=== PATIENT | male | born 1985 | race Caucasian/White ===

== ENCOUNTER 2016-10-03 11:17 | Emergency (ER) | payer SELFPAY ==
[2016-10-03 11:22] VITALS: O2SAT 96
--- NOTE | 2016-10-03 11:42 | CPEKG ---
Heart Rate: 95 RR Interval: 632 P-R Interval: 156 QRSD Interval: 88 QT Interval: 340 QTC Interval: 428 P [place]: 12 QRS [place]: 24 T Wave [place]: 3 EKG Severity - NORMAL ECG - EKG Impression: SINUS RHYTHM Electronically Signed By: Paul Lynch 03-Oct-2016 12:09:12
--- NOTE | 2016-10-03 11:57 | EDPHY ---
H & P Stated Complaint: near syncope HPI/ROS: CHIEF COMPLAINT: Dizziness, high blood pressure, headache HISTORY OF PRESENT ILLNESS: patient was working early this morning when he felt a sudden onset of dizziness. associated with mild headache and generally not feeling well. No sudden onset of headache. No neck pain or stiffness. No fever or chills. No cough or abdominal complaints. No urinary complaints. He does have dizziness that lasted for several minutes and resolved. It came back 1 other time. At this time is no dizziness but does have a very mild frontal headache. No confusion, nausea or vomiting. No spinning sensation. No other associated complaints or modifying factors. He does not have a primary care physician. He says he is overweight but has no known medical diagnoses. REVIEW OF SYSTEMS: Ten systems reviewed and are negative unless otherwise noted in the HPI EXAMINATION General Appearance: Alert, no distress, obese Head: normocephalic, atraumatic Eyes: Pupils equal and round, no conjunctival pallor or injection , no subconjunctival hemorrhage or hyphema ENT, Mouth: Mucous membranes moist Neck: Normal inspection, supple, non-tender Respiratory: Lungs are clear to auscultation Cardiovascular: Regular rate and rhythm Gastrointestinal: Abdomen is soft and nontender. No rigidity or tympany. Neurological: A&O X4, cranial nerves 2-12 grossly intact. strength is 5/5 in all limbs. Sensory intact bilaterally. No pronator drift. non-focal With negative stroke scale. Skin: Warm and dry, no rash Extremities: Nontender, no pedal edema Psychiatric: Mood and affect normal DIFFERENTIAL DIAGNOSES: Including but not limited to Hypertensive urgency, hypertensive emergency, intracranial bleed, intracranial mass, vertigo MDM: dizziness with high blood pressure without any trauma or severe headache. He is 30 years old with no known diagnosis. Blood pressure was 160/110 at this facility. He has no chest pain of any kind. Laboratory studies are pending at this time, as well as CT scan. EKG was unremarkable. 12:20 p.m. radiologist contacted me to inform you that there are no acute findings on the CT scan of the head. No abnormal findings of any kind. He remains hemodynamically stable with mild hypertension. 1:25 p.m. I have re-evaluated this patient. They remain hemodynamically stable and in no distress. No further complaints at this time.Blood pressure has improved to 140/ 109. He has no headache or dizziness. No chest pain. Labs are within normal limits without any evidence of end-organ damage. We discussed discharge home with outpatient follow-up with primary care physician, he is comfortable with this. Return to the ER for any headache, chest pain, dizziness or syncope. EKG: Interpreted by Dr. Lynch SUPERVISION: This patient was independently evaluated without the aide of supervising physician. Source: Patient Exam Limitations: No limitations - Personal History Current Tetanus/Diphtheria Vaccine: Yes Current Tetanus Diphtheria and Acellular Pertussis (TDAP): Yes - Medical/Surgical History Hx Asthma: No Hx Chronic Respiratory Disease: No Hx Diabetes: No Hx Cardiac Disease: No Hx Renal Disease: No Hx Cirrhosis: No Hx Alcoholism: No Hx HIV/AIDS: No Hx Splenectomy or Spleen Trauma: No Other PMH: IBS - Social History Smoking Status: Former smoker Constitutional: Initial Vital Signs Temperature (C) 98.6 F 10/03/16 11:19 Heart Rate 102 H 10/03/16 11:19 Respiratory Rate 16 10/03/16 11:19 Blood Pressure 160/110 H 10/03/16 11:19 O2 Sat (%) 96 10/03/16 11:19 O2 Delivery Mode Room Air Allergies/Adverse Reactions: amoxicillin Allergy (Verified 10/03/16 11:22) Penicillins Allergy (Verified 10/03/16 11:22) Medical Decision Making - Data Points Laboratory Results: Laboratory Results 10/03/16 11:55 10/03/16 11:55 10/03/16 11:55 WBC 10.39 H 10^3/uL (3.80-9.50) RBC 5.81 10^6/uL (4.40-6.38) Hgb 15.8 g/dL (13.7-17.5) Hct 47.5 % (40.0-51.0) MCV 81.8 fL (81.5-99.8) MCH 27.2 L pg (27.9-34.1) MCHC 33.3 g/dL (32.4-36.7) RDW 13.9 % (11.5-15.2) Plt Count 271 10^3/uL (150-400) MPV 10.5 fL (8.7-11.7) Neut % (Auto) 62.5 % (39.3-74.2) Lymph % (Auto) 29.9 % (15.0-45.0) [place] % (Auto) 5.3 % (4.5-13.0) Eos % (Auto) 1.3 % (0.6-7.6) Baso % (Auto) 0.4 % (0.3-1.7) Nucleat RBC Rel Count 0.0 % (0.0-0.2) Absolute Neuts (auto) 6.49 10^3/uL (1.70-6.50) Absolute Lymphs (auto) 3.11 H 10^3/uL (1.00-3.00) Absolute Monos (auto) 0.55 10^3/uL (0.30-0.80) Absolute Eos (auto) 0.14 10^3/uL (0.03-0.40) Absolute Basos (auto) 0.04 10^3/uL (0.02-0.10) Absolute Nucleated RBC 0.00 10^3/uL (0-0.01) Immature Gran % 0.6 % (0.0-1.1) Immature Gran # 0.06 10^3/uL (0.00-0.10) Sodium 139 mEq/L (134-144) Potassium 4.7 mEq/L (3.5-5.2) Chloride 102 mEq/L (97-110) Carbon Dioxide 28 mEq/l (22-31) Anion Gap 9 mEq/L (8-16) BUN 9 mg/dL (7-23) Creatinine 0.9 mg/dL (0.7-1.3) Estimated GFR > 60 Glucose 102 H mg/dL (70-100) Calcium 9.4 mg/dL (8.5-10.4) Total Bilirubin 0.6 mg/dL (0.1-1.4) Conjugated Bilirubin 0.4 mg/dL (0.0-0.5) Unconjugated Bilirubin 0.2 mg/dL (0.0-1.1) AST 31 IU/L (17-59) ALT 52 IU/L (21-72) Alkaline Phosphatase 62 IU/L (38-126) Troponin I < 0.012 ng/mL (0-0.034) Total Protein 7.2 g/dL (6.3-8.2) Albumin 4.3 g/dL (3.5-5.0) Departure - Departure Clinical Impression: Elevated blood pressure reading, Dizziness Cephalgia Qualifiers: Qualifier Code: (R51) Headache Obesity Qualifiers: Qualifier Code: (E66.9) Obesity, unspecified Condition: Good Instructions: Hypertension (ED), DASH Eating Plan (ED), Dizziness (ED) Additional Instructions: Return to the ER for any chest pain, return of dizziness or headache, syncope, nausea or confusion Referrals: NONE *PRIMARY CARE P,. [Primary Care Provider] - As per Instructions Nelson Quintero MD [Medical Doctor] - As per Instructions
[2016-10-03 12:07] LABS: % IMMATURE GRANULYOCYTES 0.6 % (0.0-1.1); ABSOLUTE IMMATURE GRANULOCYTES 0.06 10^3/uL (0.00-0.10); ADD DIFF? NO; ADD MORPH? NO; ADD SCAN? NO; ATYPICAL LYMPHOCYTE FLAG 10 (0-99); FRAGMENT RBC FLAG 0 (0-99); HEMATOCRIT 47.5 % (40.0-51.0); HEMOGLOBIN 15.8 g/dL (13.7-17.5); LEFT SHIFT FLG 0 (0-99); LIPEMIA HEMOLYSIS FLAG 80 (0-99); MEAN CELL HEMOGLOBIN 27.2 pg (27.9-34.1); MEAN CELL HEMOGLOBIN CONCENTR. 33.3 g/dL (32.4-36.7); MEAN CELL VOLUME 81.8 fL (81.5-99.8); MEAN PLATELET VOLUME 10.5 fL (8.7-11.7); PLATELET CLUMPS FLAG 0 (0-99); PLATELET COUNT 271 10^3/uL (150-400); RED BLOOD CELL COUNT 5.81 10^6/uL (4.40-6.38); RED CELL DISTRIBUTION WIDTH 13.9 % (11.5-15.2)
--- NOTE | 2016-10-03 12:23 | CT ---
CT Brain (Without Contrast) at 1206 hours History: Hypertension, dizziness. Comparison: None. Technique: Axial computed tomographic images of the brain without contrast. Dose reduction technique s were utilized. Findings: Ventricles, cisterns, and sulci are normal without atrophy, hydrocephalus, midline shift/h erniation, or epidural/subdural hematomas. No acute intraparenchymal hemorrhage, definite infarct, or mass effect. Bone windows demonstrate no displaced fractures. Paranasal sinuses and mastoid air cell s are clear. Impression: 1. Normal CT brain without contrast. 2. Consider MRI of the brain without and with contrast enhancement, if there is continued clinical co ncern. Findings and recommendations discussed with Emergency Department physician, Eduardo Seaman PA-C at 122 0 hour, today. Final report concurs with initial preliminary interpretation.
[2016-10-03 12:32] LABS: ALANINE AMINOTRANSFERASE 52 IU/L (21-72); ALBUMIN 4.3 g/dL (3.5-5.0); ALKALINE PHOSPHATASE 62 IU/L (38-126); ANION GAP 9 mEq/L (8-16); ASPARTATE AMINOTRANSFERASE 31 IU/L (17-59); BILIRUBIN,TOTAL 0.6 mg/dL (0.1-1.4); BILIRUBIN-CONJUGATED 0.4 mg/dL (0.0-0.5); BILIRUBIN-UNCONJUGATED 0.2 mg/dL (0.0-1.1); CALCIUM 9.4 mg/dL (8.5-10.4); CARBON DIOXIDE 28 mEq/l (22-31); CHLORIDE 102 mEq/L (97-110); CREATININE 0.9 mg/dL (0.7-1.3); GLOMERULAR FILTRATION RATE > 60; GLUCOSE 102 mg/dL (70-100); POTASSIUM 4.7 mEq/L (3.5-5.2); SODIUM 139 mEq/L (134-144); TOTAL PROTEIN 7.2 g/dL (6.3-8.2)
[2016-10-03 12:43] LABS: TROPONIN I < 0.012 ng/mL (0-0.034)
[2016-10-03 13:44] VITALS: BP 142/109; PULSE 75; RESP 18; TEMP 97.5
== END 2016-10-03 13:39 | disposition home or self-care (01) ==
DX: R42 Dizziness and giddiness (principal); R51 Headache; E66.9 Obesity, unspecified; R03.0 Elevated blood-pressure reading, without diagnosis of hypertension; Z87.891 Personal history of nicotine dependence

== ENCOUNTER 2016-10-05 19:38 | Emergency (ER) | payer SELFPAY ==
--- NOTE | 2016-10-05 20:28 | EDPHY ---
H & P Stated Complaint: HIGH BLOOD PRESSURE WITH HX OF SAME Time Seen by Provider: 10/05/16 20:28 - Personal History Current Tetanus/Diphtheria Vaccine: Yes Current Tetanus Diphtheria and Acellular Pertussis (TDAP): Yes - Medical/Surgical History Hx Asthma: No Hx Chronic Respiratory Disease: No Hx Diabetes: No Hx Cardiac Disease: No Hx Renal Disease: No Hx Cirrhosis: No Hx Alcoholism: No Hx HIV/AIDS: No Hx Splenectomy or Spleen Trauma: No Other PMH: IBS, APPY, WRIST FX - Social History Smoking Status: Former smoker Constitutional: Initial Vital Signs Temperature (C) 37.2 C 10/05/16 19:51 Heart Rate 100 10/05/16 19:51 Respiratory Rate 18 10/05/16 19:51 Blood Pressure 145/124 H 10/05/16 19:51 O2 Sat (%) 94 10/05/16 19:51 O2 Delivery Mode Room Air Allergies/Adverse Reactions: amoxicillin Allergy (Verified 10/05/16 19:53) Penicillins Allergy (Verified 10/05/16 19:53) Home Medications: Medication Instructions Recorded Forskolin 10/05/16 Lisinopril/Hctz 20/12.5MG 1 ea PO DAILY #30 tab 10/05/16 [Zestoretic/Prinzide 20/12.5MG (*)] Medical Decision Making ED Course/Re-evaluation: CHIEF COMPLAINT: asymptomatic elevated blood pressure HISTORY OF PRESENT ILLNESS: The patient is a 30 y/o male arriving with his girlfriend due to elevated blood pressure. He says, "I'm here for her" and denies any symptoms including headache, vision changes. He says 2 days ago he experienced an episode of dizziness and syncope while working up on [employer] and was evaluated in the ED here. He had a normal cardiac workup and was not discharged on treatment for hypertension. He denies other pertinent medical history. REVIEW OF SYSTEMS: A 10 point review of systems was performed and is negative with the exception of the elements mentioned in the history of present illness. PHYSICAL EXAM: HR, BP, O2 Sat, RR. Temp noted General Appearance: Alert, well hydrated, appropriate, and non-toxic appearing. Obese. Head: Atraumatic without scalp tenderness or obvious injury Eyes: Pupils equal, round, reactive to light and accommodation, EOMI, no trauma , no injection. Ears: Clear bilaterally, no perforation, normal landmarks Nose: Atraumatic, no rhinorrhea, clear. Throat: There is no erythema or exudates, no lesions, normal tonsils, mucus membranes moist. Neck: Supple, 2+ carotid upstroke, nontender, no lymphadenopathy. Respiratory: No retractions, no distress, no wheezes, and no accessory muscle use. Lungs are clear to auscultation bilaterally. Cardiovascular: Regular rate and rhythm, no murmurs, rubs, or gallops. Bilateral carotid, radial, dorsalis pedis, and posterior tibial pulses intact. Good capillary refill all extremities. Gastrointestinal: Abdomen is soft, nontender, non-distended, no masses, no rebound, no guarding, no peritoneal signs. Musculoskeletal: Normal active ROM of all extremities, atraumatic. Neurological: Alert, appropriate, and interactive. The patient has normal DTRs and non-focal cranial nerves, motor, sensory, and cerebellar exam. Skin: No rashes, good turgor, no nodules on palpation. Past medical history: Recent syncope, obesity Past surgical history: Noncontributory Family history: Noncontributory Social history: Girlfriend at bedside. 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 MEDICAL DECISION MAKING: This is an obese 30 y/o male presenting to the ED at the request of his girlfriend for elevated blood pressure. He is completely asymptomatic. He had a normal cardiac work up 2 days ago after a syncopal episode at work. His current blood pressure on exam is 166/108. He had normal kidney function per labs . There is no evidence of hypertensive urgency, hypertensive emergency. or end -organ damage. Plan to start patient on lisinopril/hydrochlorothiazide 20/ 12.5mg and discharge with referral to PCP. He is comfortable with this plan. Return precautions given. Departure - Departure Disposition: Home, Routine, Self-Care Clinical Impression: Hypertension Qualifiers: Qualifier Code: (I10) Essential (primary) hypertension Condition: Good Instructions: Hypertension (ED) Additional Instructions: Take lisinopril/hydrochlorothiazide medication as prescribed. Follow up with a primary care provider this coming week and bring your medication with you so they can evaluate the dose. Return to the ED for severe headache, fainting, or other worsening of condition. Referrals: Marshal Vaz MD [Medical Doctor] - As per Instructions Prescriptions: Lisinopril/Hctz 20/12.5MG [Zestoretic/Prinzide 20/12.5MG (*)] 1 ea PO DAILY #30 tab Report Scribed for: Klever Mckeon Report Scribed by: Mar Jenkins Date of Report: 10/05/16 Time of Report: 20:35
[2016-10-05] MEDS ORDERED: LISINOPRIL/HCTZ 20/12.5MG 1 EA TAB PO ONE (20:32)
[2016-10-05 20:57] VITALS: BP 158/109; PULSE 93; RESP 16; TEMP 97.9; O2SAT 95
== END 2016-10-05 20:57 | disposition home or self-care (01) ==
DX: I10 Essential (primary) hypertension (principal); Z87.891 Personal history of nicotine dependence